=== PATIENT | male | born 1945 | race Caucasian/White ===

== ENCOUNTER 2025-02-18 15:52 | Emergency (ER) | payer MEDICARE, OTHER, SELFPAY ==
--- OUTSIDE RECORDS SUMMARY | 2025-02-11 08:35 | XMS_ITS | Encounter Summary ---
Author Organization [facility] Address [address] [place] [address] Care Team Providers Care Helix Coil Winder Name Role Phone Joann Orosco MD Unavailable Joann Orosco MD Primary Care Provider [phone] Encounter Details Date Type Department Care Team (Late st Contact Info) Description 02/11/2025 8:35 AM EDT Office Visit [facility] [address] [facility] [place] [place] [phone] Mckayla Gallagher APRN-CNP [address] [facility] 350 [place] [address] Other seborrheic dermatitis; Actinic keratosis; Inflamed seborrheic keratosis; Seborrheic keratosis; Lentigines Social History Tobacco Use Types Packs/Day Years Used Date Smoking Tobacco: Never Alcohol Use Standard Drinks/Week Comments Yes 2 (1 standard drink = 0.6 oz pur e alcohol) caffeine: 1-2 cups per day PHQ-2 Answer Date Recorded Patient Health Questionnaire-2 Score 0 12/10/2024 Sex and Gender Information Value Date Recorded Sex Assigned at Not on file Legal Sex Male 6:50 PM EDT Gender Identity Not on file Sexual Orientation Not on file documented as of this encounter Progress Notes * LYNDON Barrera - 02/11/2025 8:35 AM EDT Skin Check Location: Patient requests a skin examination of the face and arms, A full body skin exam was offered, patient declined Dermatologic history: History of Actinic Keratosis- Uses Efudex Last visit: 05/14/2024 Established patient Follow up Diagnosis: Seborrheic Dermatitis Location: Face Symptoms: None today Status: Clear today Treatments tried and failed: Hydrocortisone 2.5% 2.5 % cream Current treatment: Ketoconazole2% cream Lesions: Location: Right dorsal hand Duration: Almost a year Quality: Not painful, but bothersome. Picks at area Modifying factors: Recurrent Associated symptoms: Rough, scaly bump Treatments: None All pertinent medical history, medications, and allergies were reviewed. General Exam: alert, oriented to person, place, and time, normal affect, well appearing A complete skin exam was offered, pt declined. Areas not examined despite medical recommendation: From the waist down and Under shirt Scalp, Examined Head, Face Examined Neck Examined Chest Not examined Back Not examined Abdomen Not examined Right arm Examined Left arm Examined Hands Examined Digits,nails: Examined Skin Exam 1. OTHER SEBORRHEIC DERMATITIS Head - Anterior (Face) Clear today. History of scale and erythema Continue use of Ketoconazole 2% cream every day/prn for flares, hold when clear. Refills sent today. Related Medications ketoconazole (NIZOral) 2 % cream Apply 1 application topically Daily 90 day supply 2. ACTINIC KERATOSIS (20) Dorsum of Nose, Left Anterior Mandible, Left Buccal Cheek, Left Frontal Scalp, Left Parotid Area, Left Scaphoid Fossa, Left Superior Shawn of Antihelix, Left Superior [place], Left Temporal Scalp (3), Mid Frontal Scalp, Mid Occipital Scalp, Mid Parietal Scalp (4), Right Dorsal Hand, Right Forehead, Right Superior [place] Erythematous scaly papules Patient was counseled regarding these sun-induced growths that can develop into squamous cell carcinoma if left untreated. Discussed treatment with cryotherapy. It was emphasized that any treated lesions that fail to resolve should be re- evaluated. Cryotherapy performed today; see procedure note Diagnosis: Actinic keratosis Indication: Precancerous Location: see skin exam Consent: Verbal consent was obtained and risks were discussed, including, but not limited to risks of scarring, darker or date puller pigmentary changes, recurrence, incomplete removal and infection. Method: Liquid nitrogen was used to treat the lesion(s) with two 5-10 second freeze-thaw cycles. Number of lesions treated: 20 Post-procedure instructions: Instructions were given orally and in writing. The office will be contacted if the lesion fails to resolve despite treatment, or if a side effect develops such as abnormal crusting, scabbing, redness or tenderness Cryotherapy, skin lesion - Dorsum of Nose, Left Anterior Mandible, Left Buccal Cheek, Left Frontal Scalp, Left Parotid Area, Left Scaphoid Fossa, Left Superior Shawn of Antihelix, Left Superior [place],Left Temporal Scalp (3), Mid Frontal Scalp, Mid Occipital Scalp, Mid Parietal Scalp (4), Right Dorsal Hand, Right Forehead, Right Superior [place] 3. INFLAMED SEBORRHEIC KERATOSIS Right Dorsal Hand Inflamed seborrheic keratoses: pink and brown stuck on verrucous scaly papule with surrounding erythema and bloody crust. The patient was informed that symptomatic seborrheic keratoses are benign growths that become inflamed, itchy, tender, traumatized, caught on clothing, or bleed. Symptomatic lesions can be treated with cryotherapy or curretage. Thicker lesions treated with cryotherapy may require more than one treatment. The patient was instructed to notify the office if abnormal redness or tenderness develops atthe treatment site. Cryotherapy today, see procedure note. Diagnosis: Inflamed seborrheic keratosis Indication: Inflamed Consent: Verbal consent was obtained and risks were discussed, including, but not limited to risks of scarring, darker or date puller pigmentary changes, recurrence, incomplete removal and infection. Method: Liquid nitrogen was used to treat the lesion(s) with two 5-10 second freeze-thaw cycles Number of lesions treated: 1 Post-procedure instructions: Instructions were given orally and in writing. The office will be contacted if the lesion fails to resolve despite treatment, or if a side effect develops such as abnormal crusting, scabbing, redness or tenderness Cryotherapy, skin lesion - Right Dorsal Hand 4. SEBORRHEIC KERATOSIS Generalized Stuck on verrucous, variably pigmented papules and plaques. Patient was counseled regarding these benign growths. Removal is normally not necessary, but they may be removed if they are symptomatic or for cosmetic reasons. 5. LENTIGINES Generalized Scattered lomeli macules in sun-exposed areas. The patient was informed that lentigines are benign pigmented lesions that occur on sun-exposed andsun-damaged skin. No treatment is necessary. Recommended regular use of broad spectrum sunscreen SPF 30 or higher Next Visit: 1 year, skin check documented in this encounter Plan of Treatment Upcoming Encounters Date Type Department Care Team (Late st Contact Info) Description 05/13/2025 8:30 AM EST Office Visit [facility] [place] [facility] [address] [facility] 110 [place] [address] Joann Orosco MD [address] [facility] 110 [place] [address] 02/11/2026 8:30 AM EDT Office Visit [facility] [place] [facility] [address] [place] [address] [place] [address] Mckayla Gallagher APRN-CNP [address] [place] [address] [place] [address] documented as of this encounter Procedures Procedure Name Priority Date/Time Associated Diagnosis Comments CRYOTHERAPY SKIN LESION Routine 02/12/20 8:34 AM EDT Inflamed seborrheic keratosis CRYOTHERAPY SKIN LESION Routine 02/12/20 8:32 AM EDT Actinic keratosis documented in this encounter Results * Cryotherapy, skin lesion (02/11/2025 8:34 AM EDT) us Mckayla Gallagher APRN-RN WOUND CARE DERM PROCEDURE ORDERAB LES Final Result * Cryotherapy, skin lesion (02/11/2025 8:32 AM EDT) us Mckayla Gallagher RETAIL LEASING AGENT-RN WOUND CARE DERM PROCEDURE ORDERAB LES Final Result documented in this encounter Visit Diagnoses Diagnosis Other seborrheic dermatitis Actinic keratosis Inflamed seborrheic keratosis Seborrheic keratosis Lentigines documented in this encounter Care Teams Helix Coil Winder Relationship Specialty Start Date End Date Joann Orosco MD [address] [facility] 110 [place] [address] PCP - ACO Reach 12/02/22 Joann Orosco MD [address] [place], [place] [phone] PCP - General Family Medicine 11/16/22 documented as of this encounter
[2025-02-18] VITALS (29 sets, daily range): BP systolic 138–181; BP diastolic 61–102; PULSE 58–83; TEMP 36.8; O2SAT 84–100; BMI 30.1
--- OUTSIDE RECORDS SUMMARY | 2025-02-18 16:19 | XMS_ITS | Encounter Summary ---
Author Organization [facility] Address [address] [place] [address] Care Team Providers Care Log Yard Derrick Operator Name Role Phone Joann Orosco MD Unavailable Joann Orosco MD Primary Care Provider [phone] Encounter Details Date Type Department Care Team (Late st Contact Info) Description 04/30/2024 Abstract [facility] [place] [facility] 112 [facility] 110 [place] [address] Joann Orosoc MD 112 [facility] 110 [place] [address] Social History Tobacco Use Types Packs/Day Years Used Date Smoking Tobacco: Never Alcohol Use Standard Drinks/Week Comments Yes 2 (1 standard drink = 0.6 oz pur e alcohol) caffeine: 1-2 cups per day Sex and Gender Information Value Date Recorded Sex Assigned at Not on file Legal Sex Male 6:50 PM EDT Gender Identity Not on file Sexual Orientation Not on file documented as of this encounter Plan of Treatment Upcoming Encounters Date Type Department Care Team (Late st Contact Info) Description 05/13/2025 8:30 AM EST Office Visit [facility] [place] [facility] 112 [facility] 110 [place] [address] Joann Orosco MD 112 [facility] 110 [place] [address] 02/11/2026 8:30 AM EDT Office Visit [facility] [place] [facility] [address] [place] [address] Mckayla Gallagher, HEALTH AND SAFETY SPECIALIST-CONDUCTOR AND ENGINEER [address] [place] [address] [place] [address] documented as of this encounter Visit Diagnoses Not on filedocumented in this encounter Care Teams Log Yard Derrick Operator Relationship Specialty Start Date End Date Joann Orosco MD [address] [facility] 110 [place] [address] PCP - ACO Reach 12/02/22 Joann Orosco MD [address] [facility] 110 [place] [address] PCP - General Family Medicine 11/16/22 documented as of this encounter
--- OUTSIDE RECORDS SUMMARY | 2025-02-18 16:19 | XMS_ITS | Encounter Summary ---
Author Organization [facility] Address [address] [place] [address] Care Team Providers Care Clinical Product Manager Name Role Phone Joann Orosco MD Unavailable Joann Orosco MD Primary Care Provider [phone] Reason for Visit * Reason Comments Med Refill Encounter Details Date Type Department Care Team (Late Contact Info) Description 02/11/2025 Refill [facility] [place] [facility] 112 [facility] 110 [place] [address] Joann Orosco MD 112 [facility] 110 [place] [address] Asthma, unspecified asthma severity, unspecified whether complicated, unspecified whether persistent (HCC) Social History Tobacco Use Types Packs/Day Years [...] Encounters Date Type Department Care Team (Late Contact Info) Description 05/13/2025 8:30 AM EST Office Visit [facility] [place] [facility] [address] [facility] 110 [place] [address] Joann Orosco MD [address] [place] [facility] 110 [place] [address] 02/11/2026 8:30 AM EDT Office Visit [facility] [address] [place] [place] [address] Mckayla Gallagher, DOCUMENT RESTORER-REFINERY OPERATOR ALKYLATION [address] [place] [address] [place] [address] documented as of this encounter Visit Diagnoses Diagnosis Asthma, unspecified asthma severity, unspecified whether complicated, unspecified whether persistent (HCC) documented in this encounter Care Teams Clinical Product Manager Relationship Specialty Start Date End Date Joann Orosco MD [address] [address] PCP - ACO Reach 12/02/22 Joann Orosco MD [address] [address] PCP - General Family Medicine 11/16/22 documented as of this encounter
--- OUTSIDE RECORDS SUMMARY | 2025-02-18 16:19 | XMS_ITS | Encounter Summary ---
Author Organization [facility] Address [address] [place] [address] Care Team Providers Care Manufacturing Helper Name Role Phone Joann Orosco MD Unavailable Joann Orosco MD Primary Care Provider [phone] Encounter Details Date Type Department Care Team (Late st Contact Info) Description 05/09/2023 Abstract [facility] [place] [facility] [address] [address] [place] [address] Joann Orosco MD [address] [facility] 110 [place] [address] Social History Tobacco Use Types Packs/Day Years [...] 8:30 AM EST Office Visit [facility] [place] [facility] 112 [facility] 110 [place] [address] Joann Orosco MD [address] [place] [facility] 110 [place] [address] 02/11/2026 8:30 AM EDT Office Visit [facility] [place] [facility] [address] [place] [address] [place] [address] Mckayla Gallagher, ELECTRONIC EQUIPMENT MAINT TECH-UNION REPRESENTATIVE [address] [place] [address] [place] [address] documented as of this encounter Visit Diagnoses Not on filedocumented in this encounter Care Teams Manufacturing Helper Relationship Specialty Start Date End Date Joann Orosco MD [address] [facility] 110 [place] [address] PCP - ACO Reach 12/02/22 Joann Orosco MD [address] [facility] 110 [place] [address] PCP - General Family Medicine 11/16/22 documented as of this encounter
--- OUTSIDE RECORDS SUMMARY | 2025-02-18 16:19 | XMS_ITS | Encounter Summary ---
Author Organization [facility] Address [address] [place] [address] Care Team Providers Care Building Trades Instructor Name Role Phone Joann Orosco MD Unavailable Joann Orosco MD Primary Care Provider [phone] Encounter Details Date Type Department Care Team (Late st Contact Info) Description 05/25/2023 Abstract [facility] [place] [facility] [address] [address] [place] [address] Joann Orosco MD 112 [facility] 110 [place] [address] Social History Tobacco Use Types Packs/Day Years [...] EST Office Visit [facility] [place] [facility] 112 [facility] 110 [place] [phone] Joann Orosco MD 112 [facility] 110 [place] [address] 02/11/2026 8:30 AM EDT Office Visit [facility] [place] [facility] [address] [place] [address] Mckayla Gallagher, ORNAMENTAL METAL ERECTOR APPRENTICE-ELECTRONEURODIAGNOSTIC TECHNICIAN [address] [place] [place] [address] documented as of this encounter Visit Diagnoses Not on filedocumented in this encounter Care Teams Building Trades Instructor Relationship Specialty Start Date End Date Joann Orosco MD [address] [facility] 110 [place] [address] PCP - ACO Reach 12/02/22 Joann Orosco MD [address] [facility] 110 [place] [address] PCP - General Family Medicine 11/16/22 documented as of this encounter
--- OUTSIDE RECORDS SUMMARY | 2025-02-18 16:19 | XMS_ITS | Encounter Summary ---
Author Organization [facility] Address [address] [place] [address] Care Team Providers Care Veterinary Parasitologist Name Role Phone Joann Orosco MD Unavailable Joann Orosco MD Primary Care Provider [phone] Encounter Details Date Type Department Care Team (Latest Contact Info) Description 02/11/2025 Travel Social History Tobacco Use Types Packs/Day Years [...] Description 05/13/2025 8:30 AM EST [facility] [address] [place] [address] [place] [address] Joann Orosco MD [address] [facility] 110 [place] [address] 02/11/2026 8:30 AM EDT Office Visit [facility] [place] [facility] [address] [place] [address] [place] [address] Mckayla Gallagher, PM TECHNICIAN-NETWORK MANAGEMENT SPECIALIST [address] [place] [address] [place] [address] documented as of this encounter Visit Diagnoses Not on filedocumented in this encounter Care Teams Veterinary Parasitologist Relationship Specialty Start Date End Date Joann Orosco MD 112 [facility] 110 [place] [address] PCP - ACO Reach 12/02/22 Joann Orosco MD 112 [facility] 110 [place] [address] PCP - General Family Medicine 11/16/22 documented as of this encounter
--- OUTSIDE RECORDS SUMMARY | 2025-02-18 16:19 | XMS_ITS | Encounter Summary ---
Author Organization [facility] Address [address] [place] [address] Care Team Providers Care Chair Pad Maker Name Role Phone Joann Orosco MD Unavailable Joann Orosco MD Primary Care Provider [phone] Encounter Details Date Type Department Care Team (Late Contact Info) Description 01/28/2025 Abstract [facility] [place] [facility] [address] [facility] 110 [place] [phone] Joann Orosco MD [address] [facility] 110 [place] [address] Social History Tobacco Use Types Packs/Day Years [...] EST Office Visit [facility] [place] [facility] [address] [facility] 110 [place] [phone] Joann Orosco MD [address] [facility] 110 [place] [address] 02/11/2026 8:30 AM EDT Office Visit [facility] [address] [place] [phone] Mckayla Gallagher APRN-TUBE BENDER HAND [address] [place] [address] [place] [address] documented as of this encounter Visit Diagnoses Not on filedocumented in this encounter Care Teams Chair Pad Maker Relationship Specialty Start Date End Date Joann Orosco MD [address] [facility] 110 [place] [address] PCP - ACO Reach 12/02/22 Joann Orosco MD [address] [facility] 110 [place] [address] PCP - General Family Medicine 11/16/22 documented as of this encounter
--- OUTSIDE RECORDS SUMMARY | 2025-02-18 16:19 | XMS_ITS | Encounter Summary ---
Author Organization [facility] Address [address] [place] [address] Care Team Providers Care Auditor Medical Claims Name Role Phone Joann Orosco MD Unavailable Joann Orosco MD Primary Care Provider [phone] Encounter Details Date Type Department Care Team (Late st Contact Info) Description 04/29/2023 Abstract [facility] [address] [facility] [address] [place] [address] [place] [address] Mckayla Gallagher, HAT FINISHER-CIGARETTE INSPECTOR [address] [facility] [place] 350 [place] [address] Social History Tobacco Use Types Packs/Day Years Used Date Smoking Tobacco: Never Tobacco Cessation:Counseling Given: Not Answered Alcohol Use Standard Drinks/Week Comments Yes 2 [...] 05/13/2025 8:30 AM EST Office Visit [facility] [address] [facility] 110 [place] [phone] Joann Orosco MD [address] [facility] 110 [place] [address] 02/11/2026 8:30 AM EDT Office Visit [facility] [place] [facility] [address] [place] [address] [place] [address] Mckayla Gallagher APRN-CIGARETTE INSPECTOR [address] [place] [address] [place] [address] documented as of this encounter Visit Diagnoses Not on filedocumented in this encounter Care Teams Auditor Medical Claims Relationship Specialty Start Date End Date Joann Orosco MD [address] [facility] 110 [place] [address] PCP - ACO Reach 12/02/22 Joann Orosco MD [address] [facility] 110 [place] [address] PCP - General Family Medicine 11/16/22 documented as of this encounter
--- OUTSIDE RECORDS SUMMARY | 2025-02-18 16:19 | XMS_ITS | Encounter Summary ---
Author Organization [facility] Address [address] [place] [address] Care Team Providers Care Jelly Maker Name Role Phone Joann Orosco MD Unavailable Joann Orosco MD Primary Care Provider Encounter Details Date Type Department Care Team (Late st Contact Info) Description 04/27/2023 Abstract [facility] [place] [facility] [address] [facility] 110 [place] [phone] Joann Orosco MD [address] [facility] 110 [place] [address] Social History Tobacco Use Types Packs/Day Years Used Date Smoking Tobacco: Never Assessed Sex and Gender Information Value Date Recorded Sex Assigned at Not on file Legal Sex Male 6:50 PM EDT Gender Identity Not on file Sexual Orientation Not on file documented as of this encounter Plan of Treatment Upcoming Encounters Date Type Department Care Team (Late st Contact Info) Description 05/13/2025 8:30 AM EST Office Visit [facility] [place] [facility] [address] [facility] [address] [place] [phone] Joann Orosco MD [address] [facility] 110 [place] [address] 02/11/2026 8:30 AM EDT Office Visit [facility] [place] [facility] [address] [place] [address] [place] [address] Mckayla Gallagher, DIGITAL SALES DIRECTOR-ENROLLMENT CONSULTANT [address] [place] [address] [place] [address] documented as of this encounter Visit Diagnoses Not on filedocumented in this encounter Care Teams Jelly Maker Relationship Specialty Start Date End Date Joann Orosco MD [address] [facility] 110 [place] [address] PCP - ACO Reach 12/02/22 Joann Orosco MD [address] [facility] 110 [place], [place] [phone] PCP - General Family Medicine 11/16/22 documented as of this encounter
--- OUTSIDE RECORDS SUMMARY | 2025-02-18 16:19 | XMS_ITS | Encounter Summary ---
Author Organization [facility] Address [address] [place] [address] Care Team Providers Care Compounder Sterile Products Name Role Phone Joann Orosco MD Unavailable Joann Orosco MD Primary Care Provider [phone] Encounter Details Date Type Department Care Team (Late st Contact Info) Description 04/18/2023 Abstract [facility] [place] [facility] [address] [facility] 110 [place] [phone] Jonan Orosco MD [address] [facility] 110 [place] [address] Social History Tobacco Use Types Packs/Day Years [...] [facility] [place] [facility] [address] [facility] [address] [place] [phone] Joann Orosco MD [address] [facility] 110 [place] [address] 02/11/2026 8:30 AM EDT Office Visit [facility] [place] [facility] [address] [place] [address] [place] [address] Mckayla Gallagher, TIE UP WORKER-ZOO KEEPER [address] [place] [address] [place] [address] documented as of this encounter Visit Diagnoses Not on filedocumented in this encounter Care Teams Compounder Sterile Products Relationship Specialty Start Date End Date Joann Orosco MD [address] [facility] 110 [place] [address] PCP - ACO Reach 12/02/22 Joann Orosco MD [address] [facility] 110 [place], [place] [phone] PCP - General Family Medicine 11/16/22 documented as of this encounter
--- OUTSIDE RECORDS SUMMARY | 2025-02-18 16:19 | XMS_ITS | Encounter Summary ---
Author Organization [facility] Address [address] [place] [address] Care Team Providers Care Block Chopper Hand Name Role Phone Joann Orosco MD Unavailable Joann Orosco MD Primary Care Provider [phone] Encounter Details Date Type Department Care Team (Late st Contact Info) Description 04/05/2023 Orders Only [facility] [address] [facility] [address] [place] [address] Lucy Clark, QUALITY CONTROL ENGINEERING TECHNICIAN [address] [facility] [place] [address] Social History Tobacco Use Types Packs/Day Years [...] 8:30 AM EST [facility] [address] [place] [phone] Joann Orosco MD [address] [facility] [address] [place], [place] [id number] 02/11/2026 8:30 AM EDT Office Visit [facility] [address] [facility] [address] [place] [address] Mckayla Gallagher, METAL MOLDER-SPECIAL EDUCATION SECRETARY [address] [place] [place] [address] documented as of this encounter Visit Diagnoses Not on filedocumented in this encounter Care Teams Block Chopper Hand Relationship Specialty Start Date End Date Joann Orosco MD [address] [facility] 110 [place] [address] PCP - ACO Reach 12/02/22 Joann Orosco MD [address] [facility] 110 [place] [address] PCP - General Family Medicine 11/16/22 documented as of this encounter
--- OUTSIDE RECORDS SUMMARY | 2025-02-18 16:19 | XMS_ITS | Clinical Summary ---
Author Organization [facility] Address [address] [place] [address] Care Team Providers Care Equipment Mechanic Specialist Name Role Phone Joann Orosco MD Unavailable Joann Orosco MD Primary Care Provider [phone] Allergies Active Allergy Reactions Criticality Noted Date Comments Penicillin G Rash Low 04/30/2024 Penicillin V Unknown 04/05/2023 Medications mesalamine (Lialda) 1.2 g EC tablet Take 2 tablets by mouth 1 (one) time each day at the same time. Active atorvastatin (Lipitor) 40 MG tabletIndicatio ns:Benign essential hypertension Take 1 tablet (40 mg) by mouth Daily 100 tablet 3 12/11/19 25 Active baclofen (Lioresal) 10 MG tabletIndicatio ns:Pain Take 1 tablet (10 mg) by mouth in the morning and 1 tablet (10 mg) in the evening and 1 tablet (10 mg) before bedtime. PRN. 100 tablet 3 12/11/19 25 Active metoprolol succinate XL (Toprol-XL) 50 MG 24 hr tabletIndicatio ns:Benign essential hypertension Take 1 tablet (50 mg) by mouth Daily Do not crush or chew. 100 tablet 3 12/11/19 25 Active omeprazole (PriLOSEC) [address] capsuleIndicati ons:Gastroesoph ageal reflux disease, unspecified whether esophagitis present Take 1 capsule (40 mg) by mouth in the morning. Take before meals. Do not crush or chew. 100 capsule 3 12/11/19 25 Active albuterol HFA 90 mcg/act inhalerIndicati ons:Asthma, unspecified asthma severity, unspecified whether complicated, unspecified whether persistent (HCC) USE 2 INHALATIONS EVERY 6 HOURS NEEDED 25.5 g 3 02/12/20 25 Active ketoconazole (NIZOral) 2 % creamIndication s:Other seborrheic dermatitis Apply 1 application topically Daily 90 day supply 180 g 3 02/12/20 25 Active albuterol HFA 90 mcg/act inhalerIndicati ons:Asthma, unspecified asthma severity, unspecified whether complicated, unspecified whether persistent (HCC) USE 2 INHALATIONS EVERY 6 HOURS NEEDED 25.5 g 3 02/15/20 24 025 Discontinued ketoconazole (NIZOral) 2 % creamIndication s:Other seborrheic dermatitis Apply 1 application topically Daily 90 day supply 180 g 3 05/14/20 24 025 Discontinued Active Problems Problem Noted Date Diagnosed Date 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 Reviewed poissble complications of diabetes including, loss of vision, kidney failure and increased risk of heart attacks and stroke. We made recommendations on how to control your blood sugars, and minimize your risk of these complications. We discussed your current barriers to a healthy living and importance of healthy diet and exercise. Personal history of colonic polyps 03/16/2024 Presbyopia 03/16/2024 Regular astigmatism 03/16/2024 Nuclear sclerotic cataract 03/16/2024 Hyperopia 03/16/2024 Nocturia 05/24/2023 Asthma 05/24/2023 Assessment & Plan (05/24/2023 1:28 PM EST): Well controlled Nasal congestion 05/24/2023 Assessment & Plan (05/24/2023 1:36 PM EST): I discussed with patient that while on prednisone, do not take any NSAIDs like Ibuprofen, Naprosyn, Alleve or motrin. Watch for any side effects like abdominal pain and nausea. Take the prednisone with food or milk. Prednisone may increase appetite. While on prednisone, watch for any sugar elevations. Impacted cerumen of left ear 05/24/2023 Assessment & Plan (05/24/2023 1:37 PM EST): Cerumenx or Debrox otc for the week or so and plan ear wash in 2 weeks Acid reflux 04/05/2023 Assessment & Plan (12/10/2024 8:41 AM EDT): omeprazole Cataract 04/05/2023 Diverticulosis of intestine without bleeding Dyslipidemia 04/05/2023 Assessment & Plan (12/10/2024 8:32 AM EDT): This is a chronic medical condition that is stable since last assessment. No changes in treatment are suggested at this time. Assessment & Plan (05/24/2023 1:28 PM EST): This is a chronic medical condition that is stable since last assessment. No changes in treatment are suggested at this time. Benign essential hypertension 04/05/2023 Assessment & Plan (12/10/2024 8:30 AM EDT): Our specific goals, for your hypertension, is to keep your blood pressure less than 140/90, and the importance of weight control. We made recommendations on how to control your blood pressure, and minimize your risk of these copmplications. We also discussed your current barriers to a healthy living and importance of healthy diet and exercise. Prior to your visit today we have reviewed your chart and formed a plan to assist with providing you the best possible care. We reviewed the possible complications of hypertension including, stroke, heart failure and kidney impairment. In addition, we discussed your medications, the importance of taking them as prescribed. DASH diet handouts Assessment & Plan (05/24/2023 1:26 PM EST): Our specific goals, for your hypertension, is to keep your blood pressure less than 140/90, and the importance of weight control. We made recommendations on how to control your blood pressure, and minimize your risk of these copmplications. We also discussed your current barriers to a healthy living and importance of healthy diet and exercise. Prior to your visit today we have reviewed your chart and formed a plan to assist with providing you the best possible care. We reviewed the possible complications of hypertension including, stroke, heart failure and kidney impairment. In addition, we discussed your medications, the importance of taking them as prescribed. Hotswap diet handouts Abnormal glucose tolerance test 04/05/2023 Assessment & Plan (05/24/2023 1:27 PM EST): No Tobacco use Follow ADA 1800 diet low carbohydrate Continue Med Compliance Goal LDL less than 100 Goal BP 130/80 Goal HgbA1c < 7.0% Monitor Feet, monitor for infection Needs Exercise Yearly eye exams Prior to your visit today we reviewed your chart and outlined testing and treatment needed for your care. Reviewed poissble complications of diabetes including, loss of vision, kidney failure and increased risk of heart attacks and stroke. We made recommendations on how to control your blood sugars, and minimize your risk of these complications. We discussed your current barriers to a healthy living and importance of healthy diet and exercise. Internal hemorrhoids 04/05/2023 Obesity (BMI 30-39.9) 04/05/2023 Stenosis of carotid artery 04/05/2023 Assessment & Plan (12/10/2024 8:49 AM EDT): Had US of neck last year Dr. Singh TIA (transient ischemic attack) 04/05/2023 Ulcerative colitis, unspecif ied with unspecified complications 04/05/2023 Assessment & Plan (12/10/2024 8:31 AM EDT): F/up with Gastro Resolved Problems Problem Noted Date Diagnosed Date Resolved Date Medicare annual wellness visit, subsequent 05/24/2023 03/16/2024 Assessment & Plan (05/24/2023 1:27 PM EST): Colonoscopy every 10 years or Cologuard every 3 years ages 50-75 Flu Vaccine yearly Pneumovax and Prevnar Mammo yearly for women and PSA yearly for men Labs/Screening yearly to rule out Diabetes, Chronic Kidney disease and liver disease Hepatitis Screen forat risk populations Shingles vaccine after 65 if indicated Tetanus Vaccine every 10 years Lipids yearly under the age of 75 If Smoking history: one time CT scan of chest and Ultrasound of Aorta to screen for Anuerysm Encounters Date Type Department Care Team Description 02/11/2025 8:35 AM EDT Office Visit [facility] [place] [facility] [address] [place] [phone] Mckayla Gallagher, PELT DROPPER-CEMENT PRODUCTION PLANT OPERATOR Other seborrheic dermatitis; Actinic keratosis; Inflamed seborrheic keratosis; Seborrheic keratosis; Lentigines 02/11/2025 Travel 02/11/2025 [facility]ill [facility] [place] [address] [place] [address] Joann Orosco MD Asthma, unspecified asthma severity, unspecified whether complicated, unspecified whether persistent ([facility]) 01/28/2025 Abstract [facility] [place] [address] [place] [address] Joann Orosco MD 01/28/2025 Abstract [facility] [place] [address] [place] [address] Joann Orosco MD 12/11/2024 Results Follow-Up [facility] [place] [place] [address] Joann Orosco MD 12/10/2024 8:30 AM EDT Office Visit [facility] [place] [address] [place] [address] Joann Orosco MD Routine general medical examination at [facility] [facility] (Primary Dx); Abnormal glucose tolerance test; Benign essential hypertension ; Nocturia; Medicare annual wellness visit, subsequent; Dyslipidemia ; Pain; Gastroesophageal reflux disease, unspecified whether esophagitis present; Left sided colitis without complications (HCC); Ulcerative colitis, unspecified with unspecified complications (HCC); Ulcerative colitis, unspecified, without complications (HCC); Ulcerative (chronic) proctitis without complications (HCC); Diet-controlled diabetes mellitus (HCC); Stenosis of left carotid artery 12/10/2024 Abstract [facility] [place] [place] [address] Joann Orosco MD 12/10/2024 Bamboo flowsheet [facility] [address] [place] [address] Joann Orosco MD 12/10/2024 Travel from Last 3 Months Immunizations Immunization Administration Dates Next Due Pneumococcal Conjugate PCV 13 03/18/2021 Pneumococcal Polysaccharide PPSV23 05/20/2016,,04/10/2008 Zoster, live 05/20/2016,08/05/2015 Family History Medical History Relation Name Comments Heart disease Father Dementia Mother Melanoma Neg Hx Relation Name Status Comments Father Mother Social History Tobacco Use Types Packs/Day Years [...] on file Sexual Orientation Not on file Last Filed Vital Signs Vital Sign Reading Time Taken Comments Blood Pressure 138/78 12/10/2024 8:25 AM EDT Pulse 62 12/10/2024 8:25 AM EDT Temperature - - Respiratory Rate 16 03/16/2024 10:56 AM EDT Oxygen Saturation 96% 12/10/2024 8:25 AM EDT Inhaled Oxygen Concentration - - Weight 103 kg (227 lb) 12/10/2024 8:25 AM EDT Height 177.8 cm (5' 10 ) 12/10/2024 8:25 AM EDT Body Mass Index 32.57 12/10/2024 8:25 AM EDT Plan of Treatment Upcoming Encounters Date Type Department Care Team (Late st Contact Info) Description 05/13/2025 8:30 AM EST Office Visit [facility] [place] [facility] [address] [place] [address] Joann Orosco MD [address] [place] [place] [address] 02/11/2026 8:30 AM EDT Office Visit [facility] [place] [facility] [address] [place] [address] Mckayla Gallagher APRN-CEMENT PRODUCTION PLANT OPERATOR [address] [place] [address] Health Maintenance Due Date Last Done Comments Diabetes: Retinopathy Screening 1955 Diabetes: Urine Protein Screening 1964 Medicare Annual Wellness (AWV) 05/24/2024 05/24/2023 , 04/20/2022 Influenza Vaccine (#1) 2025 Diabetes: Hemoglobin A1C 03/12/2025 025, 05/25/2023, 04/21/2022, Additional history exists Pneumococcal Vaccine: 65+ Years Completed 03/18/2021, 05/20/2016, 03/11/2014, Additional history exists Colonoscopy Discontinued 01/17/2025, 11/2022, 04/14/2023, Additional history exists Colorectal Cancer Screening Discontinued CT Colonography Discontinued FIT-DNA Discontinued FIT Discontinued FOBT Discontinued Sigmoidoscopy Discontinued Procedures Procedure Name Priority Date/Time Associated Diagnosis Comments CRYOTHERAPY SKIN LESION Routine 02/11/2025 8:34 AM EDT Inflamed seborrheic keratosis CRYOTHERAPY SKIN LESION Routine 02/11/2025 8:32 AM EDT Actinic keratosis PSA, TOTAL Routine 12/10/2024 9:26 AM EDT Nocturia Medicare annual wellness visit, subsequent LIPID PANEL Routine 12/10/2024 9:26 AM EDT Medicare annual wellness visit, subsequent Dyslipidemia COMPREHENSIVE METABOLIC PANEL Routine 12/10/2024 9:26 AM EDT Abnormal glucose tolerance test Benign essential hypertension Nocturia Medicare annual wellness visit, subsequent Dyslipidemia CBC (INCLUDES DIFF/PLT) Routine 12/10/2024 9:26 AM EDT Abnormal glucose tolerance test Benign essential hypertension Nocturia Medicare annual wellness visit, subsequent Dyslipidemia POCT GLYCATED HEMOGLOBIN, TOTAL Routine 12/10/2024 8:34 AM EDT Abnormal glucose tolerance test COLONOSCOPY Routine 04/12/2022 12:00 PM EDT from Last 3 Months or Most Recently Relevant to Health Maintenance Results * Cryotherapy, skin lesion (02/11/2025 8:34 AM EDT) Mckayla Juradoer PELT DROPPER-CEMENT PRODUCTION PLANT OPERATOR DERM PROCEDURE ORDERAB LES Final Result * Cryotherapy, skin lesion (02/11/2025 8:32 AM EDT) Mckayla Gallagher PELT DROPPER-CEMENT PRODUCTION PLANT OPERATOR DERM PROCEDURE ORDERAB LES Final Result * (ABNORMAL) CBC and differential (12/10/2024 9:26 AM EDT) WHITE BLOOD CELL COUNT 6.1 3.8 - 10.8 Thousand/u L [facility] RED BLOOD CELL COUNT 4.38 4.20 - 5.80 Million/uL [facility] HEMOGLOBIN 13.1(L) 13.2 - 17.1 g/dL [facility] HEMATOCRIT 39.5 38.5 - 50.0 % [facility] MCV 90.2 80.0 - 100.0 fL [facility] MCH 29.9 27.0 - 33.0 pg [facility] MCHC 33.2 32.0 - 36.0 g/dL [facility] Comment: For adults, a slight decrease in the calculated MCHC value (in the range of 30 to 32 g/dL) is most likely not clinically significant; however, it should be interpreted with caution in correlation with other red cell parameters and the patient's clinical condition. RDW 13.5 11.0 - 15.0 % [facility] PLATELET COUNT 230 140 - 400 Thousand/u L [facility] MPV 9.0 7.5 - 12.5 fL [facility] ABSOLUTE NEUTROPHILS 4,185 1,500 - 7,800 cells/uL [facility] ABSOLUTE LYMPHOCYTES 1,153 850 - 3,900 cells/uL [facility] ABSOLUTE MONOCYTES 622 200 - 950 cells/uL [facility] ABSOLUTE EOSINOPHILS 122 15 - 500 cells/uL [facility] ABSOLUTE BASOPHILS 18 0 - 200 cells/uL [facility] NEUTROPHILS 68.6 % [facility] LYMPHOCYTES 18.9 % [facility] MONOCYTES 10.2 % [facility] EOSINOPHILS 2.0 % [facility] BASOPHILS 0.3 % [facility] Blood Venous blood specimen / Unknown 12/10/2024 9:26 AM EDT 12/10/2024 3:37 PM EDT Narrative [facility] - 12/11/2024 9:11 AM EDT FASTING:YES FASTING: YES Resulting Agency Comment Performing Organization Information Site ID: [id number] Name[facility] Address: [address] [place] [phone] Director: Jessy Hoyos Joann Orosco MD LAB BLOOD ORDERABLES Final Resul t [facility] * PSA (12/10/2024 9:26 AM EDT) PSA, TOTAL 0.57 < OR = 4.00 ng/mL [facility] Comment: The total PSA value from this assay system is standardized against the WHO standard. The test result will be approximately 20% lower when compared to the equimolar-standardized total PSA (Marilyn [place]). Comparison of serial PSA results should be interpreted with this fact in mind. This test was performed using the Siemens chemiluminescent method. Values obtained from different assay methods cannot be used interchangeably. PSA levels, regardless of value, should not be interpreted as absolute evidence of the presence or absence of disease. Blood Venous blood specimen / Unknown 12/10/2024 9:26 AM EDT 12/10/2024 3:37 PM EDT Narrative [facility] - 12/11/2024 9:11 AM EDT FASTING:YES FASTING: YES Resulting Agency Comment Performing Organization Information Site ID: QPT Name: [facility] Address: [address] [place] [address], [address] [place] [phone] Director: Alejandro Chacon MD Joann Orosco MD LAB BLOOD ORDERABLES Final Resul t Performing Organization Address [facility]/ZIP Co de Phone Number [facility] * Lipid panel (12/10/2024 9:26 AM EDT) CHOLESTEROL, TOTAL 114 <200 mg/dL [facility] HDL CHOLESTEROL 58 > OR = 40 mg/dL [facility] TRIGLYCERIDES 41 <150 mg/dL [facility] LDL CHOLESTEROL 44 mg/dL (calc) [facility] Comment: Reference range: <100 Desirable range <100 mg/dL for primary prevention; <70 mg/dL for patients with CHD or diabetic patients with > or = 2 CHD risk factors. LDL-C is now calculated using the Jarrett calculation, which is a validated novel method providing better accuracy than the Friedewald equation in the estimation of LDL-C. Garret SS et al. DANNA. 2013;310(19): 7202-7092 (http://education.iFlipd/faq/SID769) CHOL/HDLC RATIO 2.0 <5.0 (calc) [facility] NON HDL CHOLESTEROL 56 <130 mg/dL (calc) [facility] Comment: For patients with diabetes plus 1 major ASCVD risk factor, treating to a non-HDL-C goal of <100 mg/dL (LDL-C of <70 mg/dL) is considered a therapeutic option. Blood Venous blood specimen / Unknown 12/10/2024 9:26 AM EDT 12/10/2024 3:37 PM EDT Narrative [facility] - 12/11/2024 9:11 AM EDT FASTING:YES FASTING: YES Resulting Agency Comment Performing Organization Information Site ID: QPT Name: [facility] Address: [address] [place] [address], [address] [place] [phone] Director: Alejandro Chacon MD Joann Orosco MD LAB BLOOD ORDERABLES Final Resul t [facility] * (ABNORMAL) Comprehensive metabolic panel (12/10/2024 9:26 AM EDT) Glucose 105(H) 65 - 99 mg/dL [facility] Comment: Fasting reference interval For someone without known diabetes, a glucose value between 100 and 125 mg/dL is consistent with prediabetes and should be confirmed with a follow-up test. BUN 22 7 - 25 mg/dL [facility] Creatinine 0.97 0.70 - 1.28 mg/dL [facility] EGFR 80 > OR = 60 mL/min/1. 73m2 [facility] BUN/CREATININE RATIO SEE NOTE: 6 - 22 (calc) [facility] Comment: Not Reported: BUN and Creatinine are within reference range. Sodium 141 135 - 146 mmol/L [facility] Potassium, Bld 4.4 3.5 - 5.3 mmol/L [facility] Chloride 105 98 - 110 mmol/L [facility] Carbon Dioxide 30 20 - 32 mmol/L [facility] Calcium 9.3 8.6 - 10.3 mg/dL [facility] PROTEIN, TOTAL 6.9 6.1 - 8.1 g/dL [facility] ALBUMIN 4.2 3.6 - 5.1 g/dL [facility] GLOBULIN 2.7 1.9 - 3.7 g/dL (calc) [facility] ALBUMIN/GLOBULIN RATIO 1.6 1.0 - 2.5 (calc) [facility] BILIRUBIN, TOTAL 0.5 0.2 - 1.2 mg/dL [facility] ALKALINE PHOSPHATASE 81 35 - 144 U/L [facility] AST 21 10 - 35 U/L [facility] ALT 20 9 - 46 U/L [facility] Blood Venous blood specimen / Unknown 12/10/2024 9:26 AM EDT 12/10/2024 3:37 PM EDT Narrative [facility] - 12/11/2024 9:11 AM EDT FASTING:YES FASTING: YES Resulting Agency Comment Performing Organization Information Site ID: [id number] [facility] Address: [address] [place] [phone] Director: Jessy Hoyos us Joann Orosco MD LAB BLOOD ORDERABLES Final Resul t [facility] * POCT Glycated hemoglobin, total (12/10/2024 8:34 AM EDT) Hemoglobin A1C 5.8 Blood 12/10/2024 8:34 AM EDT us Joann Orosco MD POINT OF CARE TEST ENTER/EDIT OR DERABLES Final Result * Colonoscopy (04/12/2022 12:00 PM EDT) Anatomical Region Laterality Modality Endoscopy 04/12/2022 12:0 0 PM EDT Narrative 04/12/2022 12:00 PM EDT PERFORMED AT [facility] LOCATION:[id number] sessile polyp, internal hemorrhoids, mild diverticulosis of sigmoid colo Procedure Note CONVERSION, GENERIC - 11/24/2022 PERFORMED AT [facility] LOCATION:[id number] sessile polyp, internal hemorrhoids, mild diverticulosis of sigmoid colo Joann Orosco MD ENDOSCOPY PROCEDURE ORDERABLES F inal Result from Last 3 Months or Most Recently Relevant to Health Maintenance Insurance MEDICARE [facility] Care Teams Equipment Mechanic Specialist Relationship Specialty Start Date End Date Joann Orosco MD [address] [facility] [address] [place] [address] PCP - ACO Reach 12/02/22 Joann Orosco MD [address] [address] PCP - General Family Medicine 11/16/22
--- OUTSIDE RECORDS SUMMARY | 2025-02-18 16:19 | XMS_ITS | Encounter Summary ---
Author Organization [facility] Address [address] [place] [address] Care Team Providers Care Sorting Grapple Operator Name Role Phone Joann Orosco MD Unavailable Joann Orosco MD Primary Care Provider [phone] Encounter Details Date Type Department Care Team (Late st Contact Info) Description 12/11/2024 Results Follow-Up [facility] [place] [address] [facility] [address] [place] [phone] Joann Orosco MD [address] [facility] 110 [place] [address] Social History Tobacco Use Types Packs/Day Years [...] [facility] [place] [facility] [address] [facility] [address] [place] [phone] Joann Orosco MD [address] [facility] 110 [place], [place] [id number] 02/11/2026 8:30 AM EDT Office Visit [facility] [place] [facility] [address] [place] [phone] Mckayla Gallagher APRN-TV NEWS DIRECTOR [address] [place] [address] documented as of this encounter Visit Diagnoses Not on filedocumented in this encounter Care Teams Sorting Grapple Operator Relationship Specialty Start Date End Date Joann Orosco MD [address] [facility] 110 [place] [address] PCP - ACO Reach 12/02/22 Joann Orosco MD [address] [facility] 110 [place] [address] PCP - General Family Medicine 11/16/22 documented as of this encounter
--- OUTSIDE RECORDS SUMMARY | 2025-02-18 16:19 | XMS_ITS | Encounter Summary ---
Author Organization [facility] Address [address] [place] [address] Care Team Providers Care Microfilming Document Preparer Name Role Phone Joann Orosco MD Unavailable Joann Orosco MD Primary Care Provider [phone] Encounter Details Date Type Department Care Team (Late st Contact Info) Description 12/10/2024 Abstract [facility] [place] [facility] [address] [facility] [address] [place] [address] Joann Orosco MD [address] [facility] [address] [place] [address] Social History Tobacco Use Types Packs/Day Years [...] on file documented as of this encounter Functional Status * Over the past 2 weeks, how often have you been bothered by any of the following problems? Question Answer Date of Assessment Author Little interest or pleasure in doing things Not at all 12/10/2024 8:00 AM EDT Ivette Sellers MA Feeling down, depressed, or hopeless Not at all 12/10/2024 8:00 AM EDT Ivette Sellers MA Patient Health Questionnaire -2 Score 0 12/10/2024 8:00 AM EDT Ivette Sellers MA documented as of this encounter Plan of Treatment Upcoming Encounters Date Type Department Care Team (Late st Contact Info) Description 05/13/2025 8:30 AM EST [facility] [address] [place] [address] [place] [address] Joann Orosco MD [address] [place] [address] [place] [address] 02/11/2026 8:30 AM EDT Office Visit [facility] [address] [place] [address] [place] [phone] Mckayla Gallagher APRN-[employer] [address] [place] [address] [place] [address] documented as of this encounter Visit Diagnoses Not on filedocumented in this encounter Care Teams Microfilming Document Preparer Relationship Specialty Start Date End Date Joann Orosco MD [address] [place] [address] [place] [address] PCP - ACO Reach 12/02/22 Joann Orosco MD [address] [place] [address] [place] [address] PCP - General Family Medicine 11/16/22 documented as of this encounter
--- NOTE | 2025-02-18 17:17 | ECG_ITS ---
[facility] Test Date: 2025-02-18 Pat Name: VERITO WALKER Department: Room: - Gender: Male [employer]: : 1945 Requested By: MYRON GUTIERRES Order Number: [id number] Reading MD: AHMET [place] M.D. Measurements Intervals [place] Rate: 61 P: 18 WV: 182 QRS: -11 QRSD: 100 T: 20 QT: 408 QTc: 411 Interpretive Statements 1100 Sinus rhythm 9110 normal ECG No previous ECG available for comparison Electronically Signed On 02-19-2025 13:54:28 EDT by AHMET [place] M.D.
--- NOTE | 2025-02-18 17:20 | ED.GENADUL1 ---
HPI HPI - General Adult General Chief complaint: Shortness of Breath/Dyspnea Stated complaint: SHORTNESS OF BREATH Time Seen by Provider: 02/18/25 17:07 Source: patient Mode of arrival: walk-in History of Present Illness HPI narrative: 80-year-old male presented to the emergency department for shortness of breath. He has had it for about a week and it happens mostly when he is at rest or laying down flat. He was able to play golf without any apparent difficulty. He states he quit smoking about 30 years ago and his family doctor gave him an inhaler and told him he has some asthma. The patient wonders if he has some COPD. He has not had a fever. His cough has been nonproductive. No hemoptysis. No complaints of chest pain Related Data Home Medications ?Medication ?Instructions ?Recorded ?Confirmed albuterol sulfate 90 mcg/actuation 1 puff inhalation Q6H PRN 02/18/25 02/18/25 aerosol inhaler shortness of breath or wheezing atorvastatin 40 mg tablet 40 mg PO DAILY 02/18/25 02/18/25 ketoconazole 2 % topical cream 1 applic topical BID 02/18/25 02/18/25 mesalamine 1.2 gram tablet,delayed 2.4 g PO Q24H 02/18/25 02/18/25 release metoprolol succinate 50 mg 50 mg PO DAILY 02/18/25 02/18/25 tablet,extended release 24 hr omeprazole 40 mg capsule,delayed 40 mg PO DAILY 02/18/25 02/18/25 release Allergies Allergy/AdvReac Type Severity Reaction Status Date / Time Penicillins Allergy Severe Rash Verified 02/18/25 16:00 Review of Systems ROS Narrative A ten point review of systems is negative except as noted above. PFSH PFSH Social History Little interest or pleasure in doing things: not at all Feeling down, depressed, or hopeless: not at all Exam Narrative Exam Narrative: Nurses note and vital signs reviewed and patient is not hypoxic. General: The patient appears well and in no apparent distress. Patient is resting comfortably on cart. He is speaking in full sentences. Skin: Warm, dry, no pallor noted. There is no rash noted. Head: Normocephalic, atraumatic Eye: Normal conjunctiva, no drainage Ears, Nose, Mouth, and Throat: oral mucosa is moist. Nares patent. Cardiovascular: Regular Rate and Rhythm Respiratory: Patient is in no distress, no accessory muscle use, lungs are clear to auscultation, no wheezing, rales or rhonchi Back: non-tender GI: Soft and nontender Musculoskeletal: The patient has no evidence of calf tenderness, minimal bilateral ankle edema present, symmetrical pulses noted bilaterally Neurological: A&O, normal speech Psychiatric: Cooperative Constitutional Vital Signs, click to edit/add: Last Vital Signs Temp 98.3 F 02/18/25 15:56 Pulse 66 02/18/25 18:20 Resp 17 02/18/25 18:20 BP 138/69 02/18/25 18:00 Pulse Ox 99 02/18/25 18:20 O2 Del Method Room Air 02/18/25 16:05 Course Vital Signs Vital signs: Vital Signs Temperature 98.3 F 02/18/25 15:56 Pulse Rate 72 02/18/25 15:56 Respiratory Rate 18 02/18/25 15:56 Blood Pressure 160/77 H 02/18/25 15:56 Pulse Oximetry 97 02/18/25 15:56 Oxygen Delivery Method Room Air 02/18/25 15:56 Temperature 98.3 F 02/18/25 15:56 Pulse Rate 66 02/18/25 18:20 Respiratory Rate 17 02/18/25 18:20 Blood Pressure 138/69 02/18/25 18:00 Pulse Oximetry 99 02/18/25 18:20 Oxygen Delivery Method Room Air 02/18/25 16:05 Medical Decision Making MDM Narrative Medical decision making narrative: Thus far his workup is negative. CTA is pending and the patient is signed out to Dr. Alonso at change of shift. Differential Diagnosis Differential Diagnosis: Heart failure, pneumonia, pneumothorax, PE, COPD Lab Data Lab results reviewed: Yes I reviewed the patient's lab results Labs: Lab Results 02/18/25 Range/Units 17:30 WBC 8.3 (4.0-11.0) 10^3/uL RBC 4.36 L (4.70-6.10) 10^6/uL Hgb 13.1 L (14.0-18.0) g/dL Hct 39.3 L (42.0-54.0) % MCV 90.1 (80.0-94.0) fL MCH 30.0 (25.9-34.0) pg MCHC 33.3 (29.9-35.2) g/dL RDW 13.0 (11.0-15.0) % Plt Count 244 (150-450) 10^3/uL MPV 9.2 L (9.5-13.5) fL Neut % (Auto) 68.5 (43.0-75.0) % Lymph % (Auto) 18.0 L (20.5-60.0) % [place] % (Auto) 10.3 (1.7-12.0) % Eos % (Auto) 2.5 (0.9-7.0) % Baso % (Auto) 0.5 (0.2-2.0) % Neut # (Auto) 5.7 (1.4-6.5) 10^3/uL Lymph # (Auto) 1.5 (1.2-3.8) 10^3/uL [place] # (Auto) 0.9 H (0.3-0.8) 10^3/uL Eos # (Auto) 0.2 (0.0-0.7) 10^3/uL Baso # (Auto) 0.0 (0.0-0.1) 10^3/uL Abs Immat Gran (auto) 0.02 (0.00-0.03) 10^3/uL Imm/Tot Granulo (auto) 0.2 (0.0-0.5) % Sodium 137 (136-145) mmol/L Potassium 3.7 (3.5-5.1) mmol/L Chloride 103 (98-107) mmol/L Carbon Dioxide 28.0 (21.0-32.0) mmol/L Anion Gap 9.7 BUN 23.0 H (7.0-18.0) mg/dL Creatinine 0.98 (0.70-1.30) mg/dL Est GFR ( Amer) >60 (>=60 mL/min/1.73m^2) Est GFR (Non-Af Amer) >60 (>=60 mL/min/1.73m^2) BUN/Creatinine Ratio 23.5 Glucose 107 H (74-106) mg/dL Calcium 9.6 (8.5-10.1) mg/dL Troponin I High Sens 8.8 (4.0-76.1) pg/mL NT-Pro-B Natriuret Pep 133.0 (<=1800.0) pg/mL SARS-CoV-2 Ag (CV2AG) Negative (NEGATIVE) Imaging Data Chest x-ray: Radiologist's impression: ITS Impressions Chest X-Ray 02/18/25 17:37 IMPRESSION: No acute process. Impression dictated by: Russ Mayorga M.D. 02/18/2025 5:53 PM Dictation Location: [place] Electronically authenticated by: [id number] Y Date: 02/18/2025 17:53 ECG Data Attestation: I personally reviewed and interpreted this ECG as follows: (EKG on my interpretation shows sinus rhythm with rate of 61 and no acute change) Discharge Plan Discharge Patient Disposition: Still a Patient
--- NOTE | 2025-02-18 17:37 | XR_ITS ---
The [place] [id number] Patient Name: VERITO WALKER MRN: [id number] date: 1945 Sex: M Assigned Patient Location: ER Current Patient Location: ER Accession/Order Number: [id number] Exam Date: 02/18/2025 17:52 Report Date: 02/18/2025 17:53 At the request of: BYRON EUCEDA MD Procedure: XR chest 1V Plain film chest Single view HISTORY: Shortness of breath for one week COMPARISON: None FINDINGS: SUPPORT DEVICES: None POSTSURGICAL CHANGES: None HEART: Within normal limits PULMONARY AILEEN: Within normal limits MEDIASTINUM: Unremarkable LUNGS AND PLEURA: No acute lung process, pleural effusion or pneumothorax identified. BONY STRUCTURES: Intact ADDITIONAL FINDINGS None XR/XR chest 1V IMPRESSION: No acute process. Impression dictated by: Russ Mayorga M.D. 02/18/2025 5:53 PM Dictation Location: [place] [address] Electronically authenticated by: [id number] Y Date: 02/18/2025 17:53
[2025-02-18 18:00] LABS: Hematocrit 39.3 % (42.0-54.0); Hemoglobin 13.1 g/dL (14.0-18.0); Immature Granulocytes Abs Auto 0.02 10^3/uL (0.00-0.03); Immature Granulocytes Pct Auto 0.2 % (0.0-0.5); Lymphocytes Absolute Auto 1.5 10^3/uL (1.2-3.8); Mean Corpuscular HGB Conc 33.3 g/dL (29.9-35.2); Mean Corpuscular Hemoglobin 30.0 pg (25.9-34.0); Mean Corpuscular Volume 90.1 fL (80.0-94.0); Platelet Count 244 10^3/uL (150-450); Red Blood Count 4.36 10^6/uL (4.70-6.10); White Blood Count 8.3 10^3/uL (4.0-11.0)
[2025-02-18 18:09] LABS: SARS-CoV-2 Ag NEGATIVE (NEGATIVE)
[2025-02-18 18:22] LABS: Anion Gap 9.7; Blood Urea Nitrogen 23.0 mg/dL (7.0-18.0); Calcium 9.6 mg/dL (8.5-10.1); Carbon Dioxide 28.0 mmol/L (21.0-32.0); Chloride 103 mmol/L (98-107); Estimated GFR (African America >60 (>=60 mL/min/1.73m^2); Estimated GFR (Non-African Ame >60 (>=60 mL/min/1.73m^2); Glucose 107 mg/dL (74-106); Potassium 3.7 mmol/L (3.5-5.1); Sodium 137 mmol/L (136-145)
[2025-02-18 18:23] LABS: NT Pro B Type Natriuretic Pept 133.0 pg/mL (<=1800.0)
--- NOTE | 2025-02-18 18:56 | CT_ITS ---
The [address] [address] Patient Name: VERITO WALKER MRN: [id number] date: 1945 Sex: M Assigned Patient Location: ED.MAIN Current Patient Location: ED.MAIN Accession/Order Number: [id number] Exam Date: 02/18/2025 19:35 Report Date: 02/18/2025 19:38 At the request of: BYRON EUCEDA MD Procedure: CT angio chest CTA Chest with PE protocol TECHNIQUE: Axial imaging with 2-D and 3-D reconstruction. 100 cc Omnipaque [address] exam was performed using one or more the following dose reduction techniques: Automated exposure control, adjustment of the MA and/or Kv according to patient size, or use of the iterative reconstruction technique. History: Shortness of breath for one week COMPARISON: None THYROID: Unremarkable TRACHEA AND BRONCHI: Patent ESOPHAGUS: Unremarkable. HEART: Within normal limits PERICARDIAL EFFUSION: None CORONARY ARTERY CALCIFICATION: None MEDIASTINUM: No adenopathy. No pneumoperitoneum. No mediastinal hematoma. PULMONARY AILEEN: No hilar mass or adenopathy is seen. THORACIC AORTA Unremarkable PULMONARY EMBOLUS: None LUNG NODULE None LUNGS: Lungs are clear PLEURAL EFFUSION: None PNEUMOTHORAX: No pneumothorax seen. CHEST WALL: No abnormality AXILLA: Unremarkable BONY STRUCTURES Intact UPPER ABDOMEN: Images of the upper abdomen are noncontributory. CT/CT angio chest IMPRESSION: No acute pulmonary embolus. Impression dictated by: Russ Mayorga M.D. 02/18/2025 7:38 PM Dictation Location: [employer] Electronically authenticated by: [id number] Y Date: 02/18/2025 19:38
== END 2025-02-18 21:25 | disposition home or self-care (01) ==
PROVIDERS: Emergency Provider Emergency Medicine; PCP Family Medicine
DX: R06.02 Shortness of breath (principal); R06.09 Other forms of dyspnea
CPT/HCPCS: 36415; 71045; 71275; 80048; 83880; 84484; 85025; 87811; 93005; 99285; Q9967